=== PATIENT | male | born 1955 | race Caucasian/White ===

== ENCOUNTER 2023-08-11 08:02 | Emergency (ER) | payer OTHER ==
[2023-08-11] MEDS ORDERED: Sodium Chloride 0.9% 10 ML Syringe FLUSH PRN (08:27)
[2023-08-11] MEDS ORDERED: Ondansetron 4 MG/2 ML SDV IVPUSH ONE (08:28)
[2023-08-11] MEDS ORDERED: Sodium Chloride 0.9% 1,000 ML IV SCH (08:30)
[2023-08-11 08:45] LABS: HEMATOCRIT 45.9 % (38.3-50.1); HEMOGLOBIN 15.3 g/dL (12.9-17.7); MEAN CORPUSCULAR HEMOGLOBIN 29.4 pg (27.0-33.3); MEAN CORPUSCULAR HGB CONC 33.3 g/dL (28.7-35.3); MEAN CORPUSCULAR VOLUME 88.3 fL (80.8-98.7); MEAN PLATELET VOLUME 9.1 fL (6.7-11.0); PLATELET COUNT,PLT 784 x10(3)uL (117-477); RED BLOOD CELL COUNT 5.19 x10(6)uL (3.90-5.90); RED CELL DISTRIBUTION WIDTH 13.9 % (12.4-15.0); WHITE BLOOD CELL COUNT,WBC 16.6 x10-3/uL (3.2-10.1)
[2023-08-11 08:48] LABS: BLOOD UREA NITROGEN,BUN 16 mg/dL (7-18); CALCIUM 9.7 mg/dL (8.6-10.2); CARBON DIOXIDE,CO2 19 mmol/L (21-32); CHLORIDE,CL 99 mmol/L (100-110); CREATININE 1.6 mg/dL (0.70-1.30); EST CRCL DRUG DOSING (CG) 44.19 mL/min; ESTIMATED GFR 47 mL/min (>60); GLUCOSE RANDOM 164 mg/dL (80-116); POTASSIUM,K 3.2 mmol/L (3.5-5.3); SODIUM,NA 139 mmol/L (135-145)
[2023-08-11 08:54] LABS: A/G RATIO 1.1; ALANINE AMINOTRANSFERASE,ALT 63 U/L (12-36); ALBUMIN 4.5 g/dL (3.2-4.6); ALKALINE PHOSPHATASE 81 IU/L (56-112); AMYLASE 76 U/L (25-115); ASPARTATE AMNIOTRANSFERASE,AST 41 IU/L (5-25); BILIRUBIN TOTAL 1.7 mg/dL (0.1-1.3); PROTEIN TOTAL,TP 8.7 g/dL (6.0-8.0)
[2023-08-11 09:03] LABS: LYMPHOCYTES PERCENT MAN 21 % (13-37); MONOCYTES PERCENT MAN 9 % (4-12); SEG NEUTROPHILS PERCENT MAN 70 % (46-82)
[2023-08-11 09:17] LABS: LACTIC ACID 8.6 mmol/L (0.4-2.0)
[2023-08-11] MEDS ORDERED: Piperacillin/Tazobactam 4.5 GM in Sodium Chloride 0.9% 100 ML IV SCH (09:30)
[2023-08-11] MEDS ORDERED: Iopamidol 755 Mg/ML 100 ML Bottle IV ONE (09:40)
[2023-08-11] MEDS ORDERED: Lactated Ringers 1,000 ML IV SCH (09:45)
[2023-08-11] MEDS ORDERED: VANCOmycin 1.5 GM/300 ML 1.5 GM in Premix Bag 1 BAG IV ONE (10:30)
[2023-08-11 11:24] LABS: LACTIC ACID 1.1 mmol/L (0.4-2.0)
[2023-08-11 11:32] LABS: BILIRUBIN,URINE NEGATIVE (NEGATIVE); GLUCOSE,URINE NORMAL (NORMAL); KETONES,URINE NEGATIVE (NEGATIVE); LEUKOCYTE ESTERASE,URINE NEGATIVE (NEGATIVE); NITRITE,URINE NEGATIVE (NEGATIVE); OCCULT BLOOD,URINE NEGATIVE (NEGATIVE); PROTEIN,URINE NEGATIVE (NEGATIVE); UROBILINOGEN,URINE NORMAL (NEGATIVE)
[2023-08-11 11:34] LABS: AMPHETAMINES SCREEN, URINE NEGATIVE (NEGATIVE); BARBITURATE SCREEN,URINE NEGATIVE (NEGATIVE); BENZODIAZEPINES SCREEN,URINE NEGATIVE (NEGATIVE); BUPRENORPHINE SCREEN,URINE NEGATIVE (NEGATIVE); METHADONE SCREEN, URINE NEGATIVE (NEGATIVE); METHAMPHETAMINE SCREEN, URINE NEGATIVE (NEGATIVE); OXYCODONE SCREEN,URINE NEGATIVE (NEGATIVE); THC SCREEN,URINE POSITIVE (NEGATIVE)
[2023-08-11 11:40] LABS: APPEARANCE,URINE CLEAR (CLEAR); COLOR,URINE YELLOW (YELLOW)
[2023-08-11 11:41] LABS: BACTERIA,URINE OCCASIONAL (NS); SQUAMOUS EPITHELIAL CELLS,UR OCCASIONAL (NS,R,O)
[2023-08-11] MEDS ORDERED: Lactated Ringers 1,000 ML IV ONE (12:20)
== END 2023-08-11 12:25 ==
LOC: FB.ED 08:02
DX: A41.9 Sepsis, unspecified organism (principal); N17.9 Acute kidney failure, unspecified; E87.6 Hypokalemia; E78.5 Hyperlipidemia, unspecified; I12.9 Hypertensive chronic kidney disease with stage 1 through stage 4 chronic kidney disease, or unspecified chronic kidney disease; N18.9 Chronic kidney disease, unspecified; E80.6 Other disorders of bilirubin metabolism; Z86.16 Personal history of COVID-19; Z87.891 Personal history of nicotine dependence; Z79.899 Other long term (current) drug therapy
CPT/HCPCS: 36415; 71045; 74177; 80053; 80307; 81001; 82150; 83605; 83690; 85025; 87040; 96361; 96365; 96367; 96375; 99285; J2405; J2543; J3370; J3490; J7030; J7120; Q9967